=== PATIENT | female | born 1960 | race Caucasian/White ===

== ENCOUNTER 2017-07-29 08:37 | Emergency (ER) | payer OTHER ==
[~2017-07-29 08:37] MED LIST: AMLODIPINE BESYL5 M1 PO
[2017-07-29 09:20] LABS: BASOPHIL % 0.4 % (0-2); PLATELET COUNT 234 x10^3mcL (130-400)
[2017-07-29 09:28] LABS: CALCIUM 8.7 mg/dL (8.5-10.1); CARBON DIOXIDE 29.6 mmol/L (21-32); CHLORIDE SERUM 103 mmol/L (98-107); CREATININE SERUM 0.7 mg/dL (0.6-1.0); GFR1 > 60 mL/min; GLUCOSE SERUM 124 mg/dL (74-106); POTASSIUM SERUM 3.7 mmol/L (3.5-5.1); SODIUM SERUM 140 mmol/L (136-145)
[2017-07-29 09:32] LABS: ALBUMIN 3.9 g/dL (3.4-5.0); ALKALINE PHOSPHATASE 89 U/L (46-116); ALT/SGPT 30 U/L (14-59); AST/SGOT 16 U/L (15-37); BILIRUBIN TOTAL 0.4 mg/dL (0.20-1.00)
[2017-07-29 09:38] LABS: TOTAL PROTEIN, SERUM 8.5 g/dL (6.4-8.2)
[2017-07-29 14:00] VITALS: BP 141/60
== END 2017-07-29 13:58 | disposition home or self-care (01) ==
LOC: ED 08:37
PROVIDERS: Emergency Medicine
DX: R07.89 Other chest pain (principal); I10 Essential (primary) hypertension; R06.02 Shortness of breath
CPT/HCPCS: 83880; 85378; J1885; Q0092; Q9967

== ENCOUNTER 2018-09-19 07:56 | Emergency (ER) | payer OTHER ==
[~2018-09-19] VITALS: Ht 157.5 cm; Wt 89.8 kg
[2018-09-19 08:11] VITALS: Ht 157.5 cm; Wt 89.8 kg
[2018-09-19 08:45] VITALS: BP 137/77
== END 2018-09-19 09:40 | disposition home or self-care (01) ==
LOC: ED 07:56
DX: K12.2 Cellulitis and abscess of mouth (principal); I10 Essential (primary) hypertension; F41.9 Anxiety disorder, unspecified; Z98.890 Other specified postprocedural states
CPT/HCPCS: J7512

== ENCOUNTER 2019-02-23 22:05 | Emergency (ER) | payer OTHER ==
[~2019-02-23] VITALS: Ht 160 cm; Wt 87.5 kg
[2019-02-23 22:10] VITALS: Ht 160 cm; Wt 87.5 kg
[2019-02-24 02:04] VITALS: BP 110/65
== END 2019-02-24 02:04 | disposition home or self-care (01) ==
LOC: ED 22:05
DX: S52.122A Displaced fracture of head of left radius, initial encounter for closed fracture (principal); S80.02XA Contusion of left knee, initial encounter; S80.01XA Contusion of right knee, initial encounter; F41.9 Anxiety disorder, unspecified; I10 Essential (primary) hypertension; Z90.49 Acquired absence of other specified parts of digestive tract; Z98.890 Other specified postprocedural states; W01.198A Fall on same level from slipping, tripping and stumbling with subsequent striking against other object, initial encounter; Y93.89 Activity, other specified; Y92.481 Parking lot as the place of occurrence of the external cause; Y99.8 Other external cause status
CPT/HCPCS: Q0092

== ENCOUNTER 2019-10-29 22:31 | Emergency (ER) | payer OTHER ==
[~2019-10-29] VITALS: Ht 160 cm; Wt 90.3 kg
[2019-10-29 22:36] VITALS: BP 144/68; Ht 160 cm; Wt 90.3 kg
== END 2019-10-29 23:02 | disposition home or self-care (01) ==
LOC: ED 22:31
DX: K04.7 Periapical abscess without sinus (principal); K02.9 Dental caries, unspecified; I10 Essential (primary) hypertension; Z90.49 Acquired absence of other specified parts of digestive tract

== ENCOUNTER 2019-12-16 20:58 | Emergency (ER) | payer OTHER ==
[~2019-12-16] VITALS: Ht 162.6 cm; Wt 88.5 kg
[2019-12-16 21:09] VITALS: Ht 162.6 cm; Wt 88.5 kg
[2019-12-17 00:38] VITALS: BP 118/59
== END 2019-12-17 00:38 | disposition home or self-care (01) ==
LOC: ED 20:58
DX: J11.1 Influenza due to unidentified influenza virus with other respiratory manifestations (principal); I10 Essential (primary) hypertension; Z98.890 Other specified postprocedural states; Z90.49 Acquired absence of other specified parts of digestive tract
CPT/HCPCS: 87804; J1885; Q0092

== ENCOUNTER 2020-12-29 02:09 | Emergency (ER) | payer OTHER ==
[~2020-12-29] VITALS: Ht 160 cm; Wt 93.0 kg
[2020-12-29 02:19] VITALS: Ht 160 cm; Wt 93.0 kg
[2020-12-29 03:17] LABS: BASOPHIL % 0.3 % (0.2-1.3); PLATELET COUNT 243 x10^3mcL (179-408); RED CELL DISTRIBUTION WIDTH 13.7 % (12.3-17.7)
[2020-12-29 03:21] LABS: rbc morphology (normal/abnorm) NORMAL (NORMAL)
[2020-12-29 03:23] LABS: CALCIUM 9.2 mg/dL (8.5-10.1); CARBON DIOXIDE 28.4 mmol/L (21-32); CHLORIDE SERUM 103 mmol/L (98-107); GFR1 > 60 mL/min; GLUCOSE SERUM 135 mg/dL (74-106); POTASSIUM SERUM 3.5 mmol/L (3.5-5.1); SODIUM SERUM 138 mmol/L (136-145)
[2020-12-29 03:30] LABS: ALKALINE PHOSPHATASE 93 U/L (46-116); ALT/SGPT 46 U/L (14-59); AST/SGOT 23 U/L (15-37); BILIRUBIN TOTAL 0.3 mg/dL (0.20-1.00)
[2020-12-29 03:36] LABS: TOTAL PROTEIN, SERUM 8.4 g/dL (6.4-8.2)
[2020-12-29] MEDS ORDERED: ULTRAM50 MG PO (04:44)
[2020-12-29 05:10] VITALS: BP 107/44
== END 2020-12-29 05:12 | disposition home or self-care (01) ==
LOC: ED 02:09
PROVIDERS: Emergency Medicine
DX: I16.0 Hypertensive urgency (principal); R07.89 Other chest pain; R11.0 Nausea; Z90.49 Acquired absence of other specified parts of digestive tract
CPT/HCPCS: J2405